=== PATIENT | male | born 1970 | race Caucasian/White ===

== ENCOUNTER 2020-08-16 12:01 | Emergency (ER) | payer OTHER ==
[~2020-08-16] VITALS: Ht 180.3 cm; Wt 70.0 kg
[2020-08-16 12:15] VITALS: BP 138/87
--- NOTE | 2020-08-16 12:30 | PHYS DOC ---
General Adult EDM: Chief Complaint: BACK PAIN OR INJURY HPI: HPI: He 1-year-old male presents with chronic low back pain. Patient takes naproxen twice a day for the pain. Reports pain worse today than normal. Rating pain 10/10. Patient reports right sided, toe tingling, and shooting pain down left leg. Patient denies urinary retention or bowel incontinence. (PADMINI NAVARRO APRN) Review of Systems: Review of Systems: Constitutional: Denies fever or chills Eyes: Denies change in visual acuity HENT: Denies nasal congestion or sore throat Respiratory: Denies cough or shortness of breath Cardiovascular: Denies chest pain or edema GI: Denies abdominal pain, nausea, vomiting, bloody stools or diarrhea : Denies dysuria Musculoskeletal: Reports back pain , denies joint pain Integument: Denies rash Neurologic: Denies headache, focal weakness or sensory changes Endocrine: Denies polyuria or polydipsia Lymphatic: Denies swollen glands Psychiatric: Denies depression or anxiety (PADMINI NAVARRO APRN) Physical Exam: PE: Constitutional: Well developed, well nourished, no acute distress, non-toxic appearance. [] HENT: Normocephalic, atraumatic, bilateral external ears normal, oropharynx moist, no oral exudates, nose normal. [] Eyes: PERRLA, EOMI, conjunctiva normal, no discharge. [] Neck: Normal range of motion, no tenderness, supple, no stridor. [] Cardiovascular:Heart rate regular rhythm, no murmur [] Lungs & Thorax: Bilateral breath sounds clear to auscultation [] Abdomen: Bowel sounds normal, soft, no tenderness, no masses, no pulsatile masses. [] Skin: Warm, dry, no erythema, no rash. Back: mid back pain, no CVA tenderness. [] Extremities: no cyanosis, no clubbing, ROM intact, no edema. reports shooting pain down left leg, tingling to toes on right side[] Neurologic: Alert and oriented X 3, normal motor function, normal sensory function, no focal deficits noted. [] Psychologic: Affect normal, judgement normal, mood normal. [] (PADMINI NAVARRO APRN) EKG: EKG: [] (PADMINI NAVARRO APRN) Radiology/Procedures: Radiology/Procedures: [] (PADMINI NAVARRO APRN) Heart Score: Risk Factors: Risk Factors: DM, Current or recent (<one month) smoker, HTN, HLP, family history of CAD, obesity. Risk Scores: Score 0 - 3: 2.5% MACE over next 6 weeks - Discharge Home Score 4 - 6: 20.3% MACE over next 6 weeks - Admit for Clinical Observation Score 7 - 10: 72.7% MACE over next 6 weeks - Early Invasive Strategies (PADMINI NAVARRO APRN) Course & Med Decision Making: Course & Med Decision Making CT Thoracic and Lumbar ordered to rule out IMPRESSION: Degenerative changes are seen involving the thoracic and lumbar spine as discussed above. These findings do not result in significant central spinal canal or neural foraminal stenosis. No acute osseous abnormality is seen. Patient DCD to home and to follow up with PCP. (PADMINI NAVARRO APRN) Dragon Disclaimer: Dragon Disclaimer: This electronic medical record was generated, in whole or in part, using a voice recognition dictation system. (PADMINI NAVARRO APRN) Departure Departure: Impression: Primary Impression: Back pain Qualified Codes: M54.42 - Lumbago with sciatica, left side; G89.29 - Other chronic pain Condition: GOOD Referrals: PCP,UNKNOWN (PCP) Patient Instructions: Back Pain, Adult Additional Instructions: EMERGENCY DEPARTMENT GENERAL DISCHARGE INSTRUCTIONS THANK YOU for coming to [facility] Emergency Department (ED) today and trusting us with your care. We trust that you had a positive experience in our Emergency Department. If you wish to speak to the department Management you can contact the end finder twisting department at . YOUR FOLLOW UP INSTRUCTIONS ARE FOLLOWS: Do you have a private doctor? If you do not have a private doctor, please ask for a resource list of physicians or clinics that may be able to assist you with follow up care. The Emergency Physician has interpreted your x-rays. The X-ray specialist will also review them. If there is a change in the findings you will be notified in 48 hours when at all possible. A lab test or lab culture may have been done, your results will be reviewed and you will be notified if you need a change in treatment. ADDITIONAL INSTRUCTIONS AND INFORMATION Your care today has been supervised by a physician who is specially trained in emergency care. Many problems require more than one evaluation for a complete diagnosis and treatment. We recommend that you schedule your follow up appointment as recommended to ensure complete treatment of your illness or injury. If you are unable to obtain follow up care and continue to have a problem, or if your condition worsens we recommend that you return to the ED. We are not able to safely determine your condition over the phone nor are we able to give sound medical advice over the phone. For these safety reasons, if you call for medical advice we will ask you to come to the ED for further evaluation If you have any questions regarding these discharge instructions please call the ED at . SAFETY INFORMATION In the interest of safety, wellness, and injury prevention; we encourage you to wear your seatbelt, if you smoke; quit smoking, and we encourage your family to use protective helmet for bicycling and other sporting events that present an increased risk for head injury. IF YOUR SYMPTOMS WORSEN OR NEW SYMPTOMS DEVELOP, OR YOU HAVE CONCERNS ABOUT YOUR CONDITION; OR IF YOUR CONDITION WORSENS WHILE YOU ARE WAITING FOR YOUR FOLLOW UP APPOINTMENT; EITHER CONTACT YOUR PRIMARY CARE DOCTOR, THE PHYSICIAN WHOSE NAME AND NUMBER YOU WERE GIVEN, OR RETURN TO THE ED IMMEDIATELY. Attending Signature Attending Signature I was personally available for consult in the emergency department. I have reviewed the chart and agree with the documentation as recorded by the SIMIN including the assessment, treatment plan and disposition. (PHILLIP CUNNINGHAM DO) Attending Signature I have participated in the care of this patient and I have reviewed and agree with all pertinent clinical information above including history, exam, and recommendations. (PADMINI NAVARRO APRN) PADMINI NAVARRO APRN Aug 16, 2020 12:30 PHILLIP CUNNINGHAM DO Aug 16, 2020 14:13
--- NOTE | 2020-08-16 13:54 | RAD ---
CT scan of the thoracic and lumbar spine without contrast 08/16/2020 CLINICAL HISTORY: Severe mid and low back pain. TECHNIQUE: Unenhanced, contiguous, 0.625 mm axial sections were obtained through the thoracic and lum bar spine. 3 mm reconstructed sagittal, axial and coronal images were obtained. One or more of the following individualized dose reduction techniques were utilized for this study: 1. Automated exposure control. 2. Adjustment of the mA and/or kV according to patient size. 3. Use of iterative reconstruction technique. FINDINGS: Sagittal and coronal reconstructed images demonstrate minimal S-shaped curvature of the tho racolumbar spine. Degenerative changes consisting of vertebral endplate sclerosis and minimal to mild anterior vertebral body osteophyte formation are seen throughout the thoracic and lumbar disc spaces . Mild scattered atherosclerotic plaque formation seen involving thoracic and abdominal aorta. Nonobs tructing calculi are seen involving both kidneys which measure 2 to 6 mm in size. No fracture or subluxation of the thoracic or lumbar vertebrae is seen. Degenerative changes are seen involving the thoracic disc spaces consisting of minimal to mild genera lized disc bulges and degenerative changes involving the facet joints. These findings do not result i n significant central spinal canal or neural foraminal stenosis. The changes of degenerative disc disease are seen involving the mid and lower lumbar spine. These con sist of mild to moderate generalized disc bulges, degenerative changes involving the facet joints and mild to moderate ligamentum flavum hypertrophy. These findings do not result in significant central spinal canal or neural foraminal stenosis. IMPRESSION: Degenerative changes are seen involving the thoracic and lumbar spine as discussed above. These findings do not result in significant central spinal canal or neural foraminal stenosis. No ac thea osseous abnormality is seen. Electronically signed by: Huang Chamorro MD (08/16/2020 1:52 PM) [place] [id number]
== END 2020-08-16 14:32 | disposition home or self-care (01) ==
LOC: ER 12:01
DX: M54.42 Lumbago with sciatica, left side (principal); G89.29 Other chronic pain; M79.605 Pain in left leg
CPT/HCPCS: 72128; 72131; 99285

== ENCOUNTER 2021-11-19 13:35 | Emergency (ER) | payer OTHER ==
[~2021-11-19] VITALS: Ht 177.8 cm; Wt 81.0 kg
[2021-11-19] MEDS ORDERED: KETOROLAC 15 MG/ML VIAL. IVP ONE (13:45)
[2021-11-19] MEDS ORDERED: IV NORMAL SALINE 1,000ML 1,000 ML IV ONE (13:45)
--- NOTE | 2021-11-19 14:34 | RAD ---
INDICATION: Reason: left flank pain, hematuria hx: lithotripsy, stents / Spl. Instructions: / Histo ry: COMPARISON: CT lumbar July 2020 TECHNIQUE: Axial CT images were obtained through the abdomen and pelvis without intravenous contrast. One or more of the following individualized dose reduction techniques were utilized for this examinat ion: 1. Automated exposure control; 2. Adjustment of the mA and/or kV according to patient size; 3 . Use of iterative reconstruction technique. FINDINGS: Vascular: Calcific atherosclerosis is identified. There is either mild distention of the distal esophagus or tiny hernia. Hepatobiliary: Low-density lesion at the right lobe the liver. Most common cause would be cyst but in completely characterized on noncontrast imaging. This is a common finding. Pancreas: No peripancreatic edema. Spleen: Spleen unremarkable. Renal/Bladder: No hydronephrosis. Nonobstructive left renal stones. Within the right side of the urin tavares bladder near the expected location of the right ureterovesicular junction there is a 6 mm right s ided stone. Gastrointestinal: No dilated loops of bowel to suggest obstruction. Appendix unremarkable in appearan ce. Small fat-containing umbilical hernia. Edema to a portion of the mesenteric fat with some scattered p rominent lymph nodes in the area. Degenerative changes the spine. IMPRESSION: * There is a stone identified within the urinary bladder abutting the right ureterovesicular juncti on. There is not a significant hydronephrosis therefore this could be secondary to a recently passed ureter stone. * Additional nonobstructive left renal stones as well as a cystic lesion of the lower pole the right kidney. * There is some edema to the mesenteric fat with some prominent lymph nodes in the region. Nonspecif ic appearance with causes such as mesenteric adenitis not excluded. Electronically signed by: Jose David Jack MD (11/19/2021 2:31 PM) [id number]
--- NOTE | 2021-11-19 14:44 | PHYS DOC ---
Past History Past Medical History: Kidney Stones, Other Additional Past Medical Histor: back pain Past Surgical History: Other Additional Past Surgical Histo: LITHROTRIPSY; SHOULDER; BILAT HANDS; BILAT KNEES; BACK Alcohol Use: Occasionally General Adult EDM: Chief Complaint: FLANK PAIN HPI: HPI: Patient is a 51 year old male with past medical history that includes frequent kidney stones who presents with right flank pain and hematuria. Patient states he has had his right flank pain for period of about 2 months. He states he has had to undergo lithotripsy in the past, but he cannot get a referral without seeing his primary care doctor at [facility]. They did not have any appointments available for quite a while, so he decided to present to the emergency department for expedited evaluation. Patient denies fever, chills, generalized weakness, nausea, vomiting, dysuria. Review of Systems: Review of Systems: ROS negative or noncontributory except as mentioned in HPI. Current Medications: Current Meds: Current Medications Medications (Trade) Dose Ordered Sig/Rekha Start Time Stop Time Status Last Admin Dose Admin Ketorolac Tromethamine (Toradol 15mg Vial) 15 mg 1X ONCE 11/19/21 13:45 11/19/21 13:46 DC 11/19/21 13:45 15 MG Sodium Chloride 1,000 ml @ 1,000 mls/hr 1X ONCE 11/19/21 13:45 11/19/21 14:44 11/19/21 14:05 1,000 MLS/HR Allergies: Allergies: Allergies Coded Allergies Type Severity Reaction Last Updated Verified No Known Drug Allergies 11/19/21 No Physical Exam: PE: Constitutional: Well developed, well nourished, no acute distress, non-toxic appearance. HENT: Normocephalic, atraumatic, bilateral external ears normal, nose normal. Eyes: EOMI, conjunctiva normal, no discharge. Neck: Normal range of motion, no stridor. Skin: Warm, dry, no erythema, no rash. Back: No step-off, no tenderness, no CVA tenderness. Extremities: No cyanosis, no clubbing, ROM intact, no edema. Neurologic: Alert and oriented x4, steady and symmetrical upright gait, normal motor function, normal sensory function, no focal deficits noted. Current Patient Data: Labs: Laboratory Tests Test 11/19/21 15:26 Urine Collection Type Unknown Urine Color Yellow Urine Clarity Clear Urine pH 5.5 Urine Specific [place] >=1.030 Urine Protein Neg (NEG-TRACE) Urine Glucose (UA) Neg mg/dL (NEG) Urine Ketones (Stick) Neg mg/dL (NEG) Urine Blood Mod (NEG) Urine Nitrite Neg (NEG) Urine Bilirubin Neg (NEG) Urine Urobilinogen Dipstick 0.2 mg/dL (0.2 mg/dL) Urine Leukocyte Esterase Neg (NEG) Urine RBC 20-40 /HPF (0-2) Urine WBC 1-4 /HPF (0-4) Urine Squamous Epithelial Cells Few /LPF Urine Bacteria 0 /HPF (0-FEW) Urine Mucus Marked /LPF Vital Signs: Vital Signs Date Time Temp Pulse Resp B/P (MAP) Pulse Ox O2 Delivery O2 Flow Rate FiO2 11/19/21 14:55 89 18 129/76 (93) 96 Room Air 11/19/21 13:44 98.1 102 18 138/70 (92) 96 Room Air Radiology/Procedures: Radiology/Procedures: PROCEDURE: CT ABDOMEN PELVIS WO CONTRAST INDICATION: Reason: left flank pain, hematuria hx: lithotripsy, stents / Spl. Instructions: / History: COMPARISON: CT lumbar July 2020 TECHNIQUE: Axial CT images were obtained through the abdomen and pelvis without intravenous contrast. One or more of the following individualized dose reduction techniques were utilized for this examination: 1. Automated exposure control; 2. Adjustment of the mA and/or kV according to patient size; 3. Use of iterative reconstruction technique. FINDINGS: Vascular: Calcific atherosclerosis is identified. There is either mild distention of the distal esophagus or tiny hernia. Hepatobiliary: Low-density lesion at the right lobe the liver. Most common cause would be cyst but incompletely characterized on noncontrast imaging. This is a common finding. Pancreas: No peripancreatic edema. Spleen: Spleen unremarkable. Renal/Bladder: No hydronephrosis. Nonobstructive left renal stones. Within the right side of the urinary bladder near the expected location of the right ureterovesicular junction there is a 6 mm right sided stone. Gastrointestinal: No dilated loops of bowel to suggest obstruction. Appendix unremarkable in appearance. Small fat-containing umbilical hernia. Edema to a portion of the mesenteric fat with some scattered prominent lymph nodes in the area. Degenerative changes the spine. IMPRESSION: * There is a stone identified within the urinary bladder abutting the right ureterovesicular junction. There is not a significant hydronephrosis therefore this could be secondary to a recently passed ureter stone. * Additional nonobstructive left renal stones as well as a cystic lesion of the lower pole the right kidney. * There is some edema to the mesenteric fat with some prominent lymph nodes in the region. Nonspecific appearance with causes such as mesenteric adenitis not excluded. Electronically signed by: Jose David Jack MD (11/19/2021 2:31 PM) [id number] Heart Score: C/O Chest Pain: No Course & Med Decision Making: Course & Med Decision Making Pertinent Labs and Imaging studies reviewed. (See chart for details) Patient is a 51-year-old male who presents with right flank pain and what he believes to be a kidney stone. Patient reports he has had several kidney stones in the past, often requiring hospitalization and lithotripsy. Work-up today will include urinalysis and CT abdomen pelvis plain. Patient was provided with IV Toradol for pain control. He had several questions about this medication choice, which were answered. He is amenable to this treatment plan. Patient rates his pain 7/10 after Toradol administration. He was offered something more for pain, but declines at this time. CT reveals 6 mm stone in the bladder, most likely recently passed through the ureter. There is no hydronephrosis or obstructing stone seen. Urinalysis does not show evidence of infection. Patient will be provided printout of his CT report to take with him to his urologist. Patient states he is happy with findings and will be able to see his urologist sooner with work-up performed today. Patient will use [id number] NSAIDs for pain control, at his own request. Questions of his significant other at bedside were answered. Return precautions are provided. Patient understands and is agreeable to discharge plan. Dragon Disclaimer: Dragon Disclaimer: This electronic medical record was generated, in whole or in part, using a voice recognition dictation system. Departure Departure: Impression: Primary Impression: Recurrent nephrolithiasis Additional Impression: Left nephrolithiasis Disposition: HOME / SELF CARE / HOMELESS Condition: STABLE Referrals: NON,STAFF (PCP) Patient Instructions: Diet for Kidney Stones, Kidney Stones, [id number] Additional Instructions: EMERGENCY DEPARTMENT GENERAL DISCHARGE INSTRUCTIONS Thank you for coming to [place] [facility] (ED) today and trusting us with you care. We trust that you had a positive experience in our Emergency Department. If you wish to speak to the department management, you may call the director at [phone]. YOUR FOLLOW UP INSTRUCTIONS ARE FOLLOWS: 1. Follow up with your primary care doctor. If you do not have a primary doctor, please ask for a resource list of physicians or clinics that may be able to assist you with follow up care. 2. The emergency provider has interpreted your imaging studies, if any were ordered. The radiology medical imaging director also reviewed them. If there is a change in the findings, you will be notified in 48 hours when at all possible. 3. If a lab test or culture has been done, your results will be reviewed and you will be notified if you need a change in treatment. 4. Follow instructions verbalized to you and refer to the printouts if needed. ADDITIONAL INSTRUCTIONS AND INFORMATION: 1. Your care today has been supervised by a physician who is specially trained in emergency care. Many problems require more than one evaluation for a complete diagnosis and treatment. We recommend that you schedule your follow up appointment as recommended to ensure complete treatment of you illness or injury. If you are unable to obtain follow up care and continue to have a problem, or if your condition worsens, we recommend that you return to the ED. 2. We are not able to safely determine your condition over the phone nor are we able to give sound medical advice over the phone. For these safety reasons, if you call for medical advice we will ask you to come to the ED for further evaluation. 3. If you have any questions regarding these discharge instructions please call the ED at [phone]. SAFETY INFORMATION: In the interest of safety, wellness, and injury prevention; we encourage you to wear your seat belt, if you smoke; quite smoking, and we encourage family to use a protective helmet for bicycling and other sporting events that present an increased risk for head injury. IF YOUR SYMPTOMS WORSEN OR NEW SYMPTOMS DEVELOP, OR YOU HAVE CONCERNS ABOUT YOUR CONDITION; OR IF YOUR CONDITION WORSENS WHILE YOU ARE WAITING FOR YOUR FOLLOW UP APPOINTMENT; EITHER CONTACT YOUR PRIMARY CARE DOCTOR, THE PHYSICIAN WHOSE NAME AND NUMBER YOU WERE GIVEN, OR RETURN TO THE ED IMMEDIATELY. LEXIE BARRAGAN Nov 19, 2021 14:44
[2021-11-19 16:24] LABS: CLARITY,URINE CLEAR; COLOR,URINE YELLOW; GLUCOSE,URINE NEG (NEG); NITRITE,URINE NEG (NEG); RBC,URINE 20-40 /HPF (0-2); UROBILINOGEN,URINE 0.2 mg/dL (0.2 mg/dL)
[2021-11-19 16:25] LABS: BACTERIA,URINE 0 /HPF (0-FEW); SQUAMOUS EPITHELIAL CELL,UR FEW /LPF
[2021-11-19 16:41] VITALS: BP 131/94
== END 2021-11-19 16:41 | disposition home or self-care (01) ==
LOC: ER 13:35
DX: N20.0 Calculus of kidney (principal)
CPT/HCPCS: 74176; 81001; 96361; 96374; 99284; J1885; J7030